=== PATIENT | male | born 1970 | race Caucasian/White ===

== ENCOUNTER → 2017-01-08 | Outpatient (CLI) | payer MEDICARE, MEDICAID ==
--- NOTE | 2017-01-08 09:55 | EKG REPORT ---
SEVERITY:- NORMAL ECG - SINUS RHYTHM : Confirmed by: Sofya Mosquera 08-Jan-2017 09:54:26
== END ==
LOC: OD 08:44
PROVIDERS: ATTEND Family Medicine
DX: R07.2 Precordial pain (principal)
CPT/HCPCS: 93005; 93010

== ENCOUNTER 2017-04-23 19:18 | Emergency (ER) | payer MEDICARE, MEDICAID ==
--- NOTE | 2017-04-23 19:54 | ER Document Report ---
ED Cardiac - General Chief Complaint: Chest Pain Stated Complaint: CHEST PAIN Time Seen by Provider: 04/23/17 19:54 Mode of Arrival: Ambulatory Information source: Patient Notes: 46 yo non smoker, non chol, non dm, non htn, mental health disability-autism, anxiety, and memory problems, Hx DVT both legs and PE jun 2015- on Xarelto c/o sharp retrosternal left-sided chest pain that lasts 15 minutes about every 15 or 20 minutes since 5 PM while he was sitting watching TV. No pain at this time. He did have one episode of chest pain while he was waiting in the waiting room. No recent upper respiratory infection symptoms. No cough. No fever or chills. No nausea vomiting or diarrhea. No abdominal pain. Lives with his mother. States he had a stress test 1 year ago which was negative. PCP is Dr. Alvarez. FH: maternal grandfather CAD. Dad DM TRAVEL OUTSIDE OF THE [place] IN LAST 30 DAYS: No - Related Data Allergies/Adverse Reactions: Penicillins Allergy (Verified 04/23/17 20:38) Home Medications: Current Home Medications Clonazepam [Clonazepam] 0.5 mg PO QAM 04/23/17 [History] Eszopiclone [Eszopiclone] 3 mg PO PRN PRN 04/23/17 [History] Risperidone [Risperdal] 0.5 mg PO BID 04/23/17 [History] Rivaroxaban [Xarelto] 20 mg PO DAILY 04/23/17 [History] Zolpidem Tartrate [Zolpidem Tartrate] 10 mg PO QPM 04/23/17 [History] Past Medical History - General Information source: Patient - Social History Smoking Status: Never Smoker Frequency of alcohol use: None Drug Abuse: None Lives with: Parents - Mother Family History: None Pulmonary Medical History: Reports: Other - Pulmonary embolism Renal/ Medical History: Denies: Hx Peritoneal Dialysis Psychiatric Medical History: Reports: Hx Anxiety, Other - austism Surgical Hx: Negative Past Surgical History: Reports: Hx Tonsillectomy - Immunizations Hx Diphtheria, Pertussis, Tetanus Vaccination: Yes Review of Systems - Review of Systems Constitutional: No symptoms reported EENT: No symptoms reported Cardiovascular: See HPI Respiratory: No symptoms reported Gastrointestinal: No symptoms reported Genitourinary: No symptoms reported Male Genitourinary: No symptoms reported Musculoskeletal: No symptoms reported Skin: No symptoms reported Hematologic/Lymphatic: No symptoms reported Neurological/Psychological: No symptoms reported Physical Exam - Vital signs Vitals: Temp Pulse Resp BP Pulse Ox 97.8 F 90 18 129/74 H 98 04/23/17 19:38 04/23/17 19:38 04/23/17 19:38 04/23/17 19:38 04/23/17 19:38 Interpretation: Normal - General General appearance: Alert, Anxious, Other - flat affect, clammy hands, holding hands in the air with bent elbows. - HEENT Head: Normocephalic, Atraumatic Eyes: Normal Conjunctiva: Normal Pupils: PERRL Mucous membranes: Normal Pharynx: Normal Neck: Supple. No: Lymphadenopathy, Thyromegally - Respiratory Respiratory status: No respiratory distress Chest status: Nontender Breath sounds: Normal Chest palpation: Normal - Cardiovascular Rhythm: Regular Heart sounds: Normal auscultation Murmur: No - Abdominal Inspection: Normal Distension: No distension Bowel sounds: Normal Tenderness: Nontender Organomegaly: No organomegaly - Back Back: Normal, Nontender. No: CVA tenderness - Extremities General upper extremity: Normal inspection, Nontender, Normal color, Normal ROM , Normal temperature General lower extremity: Normal inspection, Nontender, Normal color, Normal ROM , Normal temperature, Normal weight bearing. No: Melo's sign - Neurological Neuro grossly intact: Yes Cognition: Normal Orientation: AAOx4 [place] Coma Scale Eye Opening: Spontaneous [place] Coma Scale Verbal: Oriented [place] Coma Scale Motor: Obeys Commands Ambika Coma Scale Total: 15 Speech: Normal Motor strength normal: LUE, RUE, LLE, RLE Sensory: Normal - Psychological Associated symptoms: Normal affect, Normal mood - Skin Skin Temperature: Warm Skin Moisture: Dry Skin Color: Normal Skin irregularity: negative: Rash Course - Re-evaluation Re-evalutation: 04/23/17 21:10 His mother told me on the wall that he is been anxious about having to move to [place] tomorrow to live with his father. 04/23/17 23:22 Patient initial lab work is negative, EKG is normal sinus rhythm with no acute changes, no change from previous EKG. D-dimer is 0.27. He has not had any chest pain since he has been in bed 3. He wants to leave prior to the second troponin. I consulted with Dr. Mcguire and I have advised the patient of his risks because we cannot rule out ACS with the 1 troponin. Patient and his mother understand this and still want to go home His heart score is 0. Chest xray is negative. 04/23/17 23:24 - Vital Signs Vital signs: Temp Pulse Resp BP Pulse Ox 97.7 F 90 13 112/76 96 04/23/17 23:46 04/23/17 19:38 04/23/17 23:46 04/23/17 23:46 04/23/17 23:46 - Laboratory Result Diagrams: 04/23/17 20:28 04/23/17 20:28 Laboratory results interpreted by me: 04/23/17 04/23/17 20:28 20:28 RBC 4.05 L MCH 35.2 H MCHC 36.4 H RDW 14.5 H Total Bilirubin 2.0 H Direct Bilirubin 0.6 H Creatine Kinase 266 H Discharge - Discharge Clinical Impression: chest pain Condition: Good Disposition: HOME, SELF-CARE Instructions: Chest Pain of Unclear Cause ([facility]) Additional Instructions: return to er if pain recurs, any new symptoms see your doctor for follow up copy of labs given to the pt. Please complete the patient satisfaction survey if you get one, and return it.. If you do not receive a survey, then you can go to the [facility] website, [email or web address] and place your comments about your very good care. Thank you very much. It was a pleasure being your medical provider today. Referrals: JOYCE ALVAREZ DO [Primary Care Provider] - 04/26/17
[2017-04-23] MEDS ORDERED: ASPIRIN 81 MG TABLET, CHEWABLE PO ONE (19:58)
--- NOTE | 2017-04-23 20:37 | RADIOLOGY REPORT (SQ) ---
EXAM DESCRIPTION: CHEST SINGLE VIEW COMPLETED DATE/TIME: 04/23/2017 8:26 pm REASON FOR STUDY: chest pain COMPARISON: 01/08/2016. EXAM PARAMETERS: NUMBER OF VIEWS: One view. TECHNIQUE: Single frontal radiographic view of the chest acquired. RADIATION DOSE: NA LIMITATIONS: None. FINDINGS: LUNGS AND PLEURA: No opacities, masses or pneumothorax. No pleural effusion. MEDIASTINUM AND HILAR STRUCTURES: No masses. Contour normal. HEART AND VASCULAR STRUCTURES: Heart normal in size. Normal vasculature. BONES: No acute findings. HARDWARE: None in the chest. OTHER: No other significant finding. IMPRESSION: NO ACUTE RADIOGRAPHIC FINDING IN THE CHEST. TECHNICAL DOCUMENTATION: JOB ID: [id number]
[2017-04-23 20:52] LABS: ABSOLUTE BASOPHILS # (AUTO) 0.1 10^3/uL (0.0-0.2); ABSOLUTE EOSINOPHILS # (AUTO) 0.1 10^3/uL (0.0-0.6); ABSOLUTE LYMPHOCYTES (AUTO) 1.4 10^3/uL (0.5-4.7); ABSOLUTE MONOCYTES (AUTO) 0.5 10^3/uL (0.1-1.4); ABSOLUTE NEUT (AUTO) 4.6 10^3/uL (1.7-8.2); BASOPHILS % (AUTO) 1.2 % (0-2); EOSINOPHILS % (AUTO) 0.8 % (0-6); HEMATOCRIT 39.3 % (37.9-51.0); HEMOGLOBIN 14.3 g/dL (13.5-17.0); HGB HCT DIFFERENCE 3.6; LYMPHOCYTES % (AUTO) 21.6 % (13-45); MEAN CORPUSCULAR HEMOGLOBIN 35.2 pg (27.0-33.4); MEAN CORPUSCULAR HGB CONC 36.4 g/dL (32.0-36.0); MEAN CORPUSCULAR VOLUME 97 fl (80-97); MONOCYTES % (AUTO) 7.3 % (3-13); RED BLOOD COUNT 4.05 10^6/uL (4.35-5.55); RED CELL DISTRIBUTION WIDTH 14.5 % (11.5-14.0); SEGMENTED NEUTROPHILS % (AUTO) 69.1 % (42-78); WHITE BLOOD COUNT 6.7 10^3/uL (4.0-10.5)
[2017-04-23 21:04] LABS: ALANINE AMINOTRANSFERASE 40 U/L (21-72); ALBUMIN 4.3 g/dL (3.5-5.0); ALKALINE PHOSPHATASE 52 U/L (38-126); ANION GAP 13 (5-19); ASPARTATE AMINO TRANSFERASE 30 U/L (17-59); BILIRUBIN,DIRECT 0.6 mg/dL (0.0-0.4); BLOOD UREA NITROGEN 16 mg/dL (7-20); CALCIUM 9.6 mg/dL (8.4-10.2); CARBON DIOXIDE 24 mmol/L (22-30); CHLORIDE 104 mmol/L (98-107); CREATINE KINASE 266 U/L (55-170); CREATININE RESULT 1.24 mg/dL (0.52-1.25); GLUCOSE 97 mg/dL (75-110); POTASSIUM 4.1 mmol/L (3.6-5.0); SODIUM 141.3 mmol/L (137-145); TOTAL PROTEIN 6.8 g/dL (6.3-8.2)
[2017-04-23 21:15] LABS: CREATINE KINASE MB 1.94 ng/mL (<4.55)
[2017-04-23 21:17] LABS: PROTHROMBIN TIME 13.9 SEC (11.4-15.4); TROPONIN I < 0.012 ng/mL
[2017-04-23 23:49] VITALS: BP 112/76
--- NOTE | 2017-04-24 11:53 | EKG REPORT ---
SEVERITY:- NORMAL ECG - SINUS RHYTHM : Confirmed by: Sofya Mosquera 24-Apr-2017 11:51:54
== END 2017-04-24 00:11 | disposition home or self-care (01) ==
LOC: ER 19:18
DX: R07.9 Chest pain, unspecified (principal); F17.200 Nicotine dependence, unspecified, uncomplicated; F84.0 Autistic disorder; F41.9 Anxiety disorder, unspecified; Z79.899 Other long term (current) drug therapy
CPT/HCPCS: 93005; 99285; 36415; 82553; 82550; 85025; 85610; 80053; 84484; 85379; 71010; 93010; A9270